=== PATIENT | female | born 1945 | race Caucasian/White ===

== ENCOUNTER 2018-02-18 10:11 | Outpatient (CLI) | payer MEDICARE, MEDICAID | END 2018-02-18 10:12 | disposition home or self-care (01) | LOC: BICMAMMO 10:11 | PROVIDERS: ATTEND Family Medicine | DX: Z12.31 Encounter for screening mammogram for malignant neoplasm of breast (principal); M81.0 Age-related osteoporosis without current pathological fracture; Z80.3 Family history of malignant neoplasm of breast | CPT/HCPCS: 77063; 77067; 77080 ==

== ENCOUNTER 2018-02-18 12:42 | Outpatient (CLI) | payer MEDICARE, MEDICAID ==
--- NOTE | 2018-02-18 16:23 | CT ---
NONCONTRAST CT PULMONARY LUNG SCAN: Date: 02/18/18 HISTORY: Smoking history for 50+ years. Tobacco abuse. COMPARISON: None available. FINDINGS: There are calcified granulomatas seen at each lung base, as well as in the left middle lobe. Calcifie d granulomata are also seen in the liver and spleen with calcified mediastinal and hilar lymph nodes noted, and findings are related to prior granulomatous disease. Minimal vascular calcifications are seen in the thoracic aorta. The heart is mildly enlarged. Lack of intravenous contrast limits evaluation of the vascular structur es and mediastinum. No definite lymphadenopathy is seen. No noncalcified pulmonary nodular mass is seen within the lungs bilaterally and no pleural effusion i s present. Upper abdomen demonstrates calcifications in the proximal abdominal aorta. There is osteoarthritis and subchondral cystic changes involving the right humeral head. IMPRESSION: Lung-RADS Category 1 - Negative examination for pulmonary nodules. No noncalcified pulmonary nodules are seen. Continued annual low dose CT scan of the thorax is recommended in 12 months. POS: [facility]
== END 2018-02-18 12:43 | disposition home or self-care (01) ==
LOC: CT 12:42
PROVIDERS: ATTEND Family Medicine
DX: Z72.0 Tobacco use (principal)
CPT/HCPCS: G0297

== ENCOUNTER 2018-03-26 12:29 | Outpatient (CLI) | payer MEDICARE, MEDICAID ==
[2018-03-26] MEDS ORDERED: Gadobenate Dimeglumine 529 MG/1 ML (20ML VIAL) ONE (13:15)
== END 2018-03-26 12:30 | disposition home or self-care (01) ==
LOC: BICMRI 12:29
PROVIDERS: ATTEND Nurse Practitioner Family
DX: M48.062 Spinal stenosis, lumbar region with neurogenic claudication (principal); M47.896 Other spondylosis, lumbar region; M99.83 Other biomechanical lesions of lumbar region; Z98.890 Other specified postprocedural states
CPT/HCPCS: 72158; 82565; A9579

== ENCOUNTER 2020-07-15 12:19 | Outpatient (CLI) | payer MEDICARE, MEDICAID ==
--- NOTE | 2020-07-15 12:58 | MMO ---
Bilateral MAMMO Bilat Screen [facility]. CLINICAL HISTORY: Patient is 75 years old and is seen for screening. The patient has the following family history of breast cancer: sister. The patient has no personal history of cancer. VIEWS: The views performed were: bilateral craniocaudal with tomosynthesis and bilateral mediolateral oblique with tomosynthesis. FILMS COMPARED: The present examination has been compared to prior imaging studies performed at [facility] on 12/02/2013, 02/12/2015, 03/01/2016 and 02/18/2018. This study has been interpreted with the assistance of computer-aided detection. MAMMOGRAM FINDINGS: The breasts are heterogeneously dense, which could obscure a lesion on mammography. There are stable benign appearing densities seen in both breasts. There are no suspicious masses, suspicious calcifications, or new areas of architectural distortion. IMPRESSION: THERE IS NO MAMMOGRAPHIC EVIDENCE OF MALIGNANCY. A ROUTINE FOLLOW-UP MAMMOGRAM IN 1 YEAR IS RECOMMENDED. THE RESULTS OF THIS EXAM WERE SENT TO THE PATIENT. ACR BI-RADS Category 2 - Benign finding MAMMOGRAPHY NOTE: 1. A negative mammogram report should not delay a biopsy if a dominant of clinically suspicious mass is present. 2. Approximately 10% to 15% of breast cancers are not detected by mammography. 3. Adenosis and dense breasts may obscure an underlying neoplasm. Reported by: WESTON MONTALVO MD Electonically Signed: [id number]
--- NOTE | 2020-07-15 13:08 | BD ---
EXAM: Bone densitometry using DEXA HISTORY: 75 yo female. Screening for postmenopausal osteoporosis FINDINGS: L1--bone mineral density 0.867 g/sq cm; T score -1.1 ; Z score 1.0 L2--bone mineral density 0.891 g/sq cm; T score -1.2 ; Z score 1.1 L3--bone mineral density 0.950 g/sq cm; T score -1.2 ; Z score 1.2 L4--bone mineral density 0.979 g/sq cm; T score -0.7 ; Z score 1.8 Total L1-L4--bone mineral density 0.924 g/sq cm; T score -1.1 ; Z score 1.2 Left femoral neck--bone mineral density0.525; T score -2.9 ; Z score -1 Total proximal left femur--bone mineral density 0.714; T score -1.9 ; Z score -0.1 IMPRESSION: Osteoporosis
== END 2020-07-15 12:20 | disposition home or self-care (01) ==
LOC: BICMAMMO 12:19
PROVIDERS: ATTEND Family Medicine
DX: Z12.31 Encounter for screening mammogram for malignant neoplasm of breast (principal); M81.0 Age-related osteoporosis without current pathological fracture; Z80.3 Family history of malignant neoplasm of breast
CPT/HCPCS: 77063; 77067; 77080

== ENCOUNTER 2020-10-28 14:53 | Outpatient (CLI) | payer MEDICARE, MEDICAID | END 2020-10-28 14:54 | disposition home or self-care (01) | LOC: BICCT 14:53 | PROVIDERS: ATTEND Family Medicine | DX: Z12.2 Encounter for screening for malignant neoplasm of respiratory organs (principal); J84.10 Pulmonary fibrosis, unspecified; J98.4 Other disorders of lung; J98.11 Atelectasis; I89.8 Other specified noninfective disorders of lymphatic vessels and lymph nodes; I70.0 Atherosclerosis of aorta; K75.3 Granulomatous hepatitis, not elsewhere classified; Z87.891 Personal history of nicotine dependence | CPT/HCPCS: 71271 ==

== ENCOUNTER 2023-06-14 12:44 | Outpatient (CLI) | payer MEDICARE, MEDICAID | END 2023-06-14 12:45 | disposition home or self-care (01) | LOC: BICCT 12:44 | PROVIDERS: ATTEND Family Medicine | DX: Z12.2 Encounter for screening for malignant neoplasm of respiratory organs (principal); F17.210 Nicotine dependence, cigarettes, uncomplicated | CPT/HCPCS: 71271 ==

== ENCOUNTER 2024-04-10 13:03 | Outpatient (CLI) | payer MEDICARE, MEDICAID ==
[~2024-04-10 13:03] MED LIST: Magnevist 469MG/ML 20 ML VIAL ONE
== END 2024-04-10 13:04 | disposition home or self-care (01) ==
LOC: BICMRI 13:03
PROVIDERS: ATTEND Family Medicine
DX: R51.9 Headache, unspecified (principal); I67.82 Cerebral ischemia
CPT/HCPCS: 70553; 82565; A9579

== ENCOUNTER 2024-10-20 11:20 | Emergency (ER) | payer MEDICARE, MEDICAID | END 2024-10-20 13:16 | disposition home or self-care (01) | LOC: ERS 11:20 | DX: S50.11XA Contusion of right forearm, initial encounter (principal); I48.91 Unspecified atrial fibrillation; F17.210 Nicotine dependence, cigarettes, uncomplicated; Z79.82 Long term (current) use of aspirin; Z79.899 Other long term (current) drug therapy; W18.41XA Slipping, tripping and stumbling without falling due to stepping on object, initial encounter | CPT/HCPCS: 99283 ==